=== PATIENT | male | born 1940 | race Caucasian/White ===

== ENCOUNTER 2016-12-08 14:23 | Inpatient (IN) ==
[2016-12-08] MEDS ORDERED: ALBUTEROL/IPRATROPIUM 3 ML NEB RESP TX STA (14:47)
[2016-12-08] MEDS ORDERED: LEVOFLOXACIN INJ 750 MG in PREMIX 1 EACH IV STA (14:52)
[2016-12-08] MEDS ORDERED: methylPREDNISolone SOD SUC 125 MG/2 ML VIAL IV STA (14:53)
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
--- NOTE | 2016-12-08 15:22 | XRay Report ---
Referring Physician: Fred Eng Exam: XR chest 1V portable Date: December 08, 2016 at 3:09 PM Reason: Shortness of breath Comparison: Chest single view December 08, 2016 at 1:46 PM Findings: The cardiac silhouette is normal in size. There are mild opacities at the right lung base. This could represent atelectasis, aspiration or pneumonia. There is also minimal atelectasis or scarring within the midlung zones, mainly on the left. No pneumothorax or pleural effusion is identified. No acute osseous process is seen. Impression: There are mild opacities at the right lung base. This could represent atelectasis, aspiration or pneumonia. Atelectasis is favored. PROCEDURE INTERPRETED AT [facility] DEPARTMENT OF RADIOLOGY Final Report Signed by: Dr. Henrique Martinez
[2016-12-08] MEDS ORDERED: TERBUTALINE 1 MG/1 ML VIAL SUBCUT ONE (15:25)
[2016-12-08] MEDS ORDERED: methylPREDNISolone SOD SUC 125 MG/2 ML VIAL ONE (15:25)
[2016-12-08] MEDS: TERBUTALINE 1 MG/1 ML VIAL SUBCUT SCH ×2 (15:27→16:08)
[2016-12-08 15:35] LABS: Troponin I Only < 0.015 NG/ML (0.00-0.045)
[2016-12-08] MEDS ORDERED: LEVOFLOXACIN INJ 150 ML IV ONE (16:02)
--- NOTE | 2016-12-08 16:11 | CT Report ---
EXAM: CT chest PE study DATE: December 08, 2016 COMPARISON: CT chest with contrast August 25, 2015 REASON: Shortness of breath, increased in diameter TECHNIQUE: Axial images of the chest were obtained after administration of 80 cc of Omnipaque 350 intravenous contrast. Coronal/sagittal reformatted images and coronal/sagittal MIP images were also acquired. The study was performed per pulmonary embolism protocol. Total DLP was 401.9 mGy*cm. FINDINGS: Pulmonary arteries: There is no evidence of pulmonary embolism through the segmental pulmonary arteries. Vascular/heart: The descending thoracic aorta is again mildly dilated, measuring 3.6 cm in diameter. This is stable. There is also known dilatation of the abdominal aorta which is not well visualized on this study. There is moderate scattered calcified plaque at the thoracic aorta and its branches, including the coronary arteries. The heart is normal in size, and no pericardial effusion is seen. Lymph nodes: No suspicious adenopathy is identified at the chest. Other mediastinum: Otherwise unremarkable. Chest wall: Unremarkable. Lungs: There is moderate emphysema, mainly in a centrilobular distribution. This is most prominent at the upper lung zones. There are mild stable opacities at both lung apices. This is favored represent scarring. Minimal additional scattered opacities are seen within both lungs and likely represent atelectasis and possibly additional scarring. There is also mild eventration of the posterior right hemidiaphragm. No pneumothorax or pleural effusion is identified. There is mild bronchial wall thickening bilaterally, which can be seen in bronchitis. Bones: There is mild degenerative change at the thoracic spine. No acute osseous process is identified. Upper abdomen: No acute process is seen within the visualized upper abdomen. IMPRESSION: 1. No evidence of pulmonary embolism. 2. Moderate emphysema. 3. There are minimal scattered opacities within both lungs. This is most consistent with atelectasis and likely scarring. 4. Stable mild dilatation of the descending thoracic aorta. PROCEDURE INTERPRETED AT [facility] DEPARTMENT OF RADIOLOGY Final Report Signed by: Dr. Henrique Martinez
[2016-12-08] MEDS ORDERED: ALBUTEROL 2.5 MG/3 ML NEB RESP TX PRN (17:13)
[2016-12-08] MEDS ORDERED: methylPREDNISolone SOD SUC 40 MG/1 ML VIAL IV SCH (17:30)
[2016-12-08] MEDS ORDERED: cefTRIAXone 1,000 MG in SODIUM CHLORIDE 0.9% 100 ML IV SCH (17:30)
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
[2016-12-08] MEDS ORDERED: DEXTROSE 50% 25 GM/50 ML VIAL IV PRN (18:15)
[2016-12-08] MEDS ORDERED: GLUCAGON 1 MG VIAL IM PRN (18:15)
[2016-12-08] MEDS ORDERED: ERGOCALCIFEROL 50,000 UNIT CAPSULE PO SCH (18:15)
[2016-12-08] MEDS: ALBUTEROL/IPRATROPIUM 3 ML NEB RESP TX SCH (19:21)
[2016-12-08] MEDS ORDERED: BUDESONIDE/FORMOTEROL 160-4.5 INHALER 6 GM INH SCH (21:00)
[2016-12-08] MEDS: FLUTICASONE/SALMETEROL 250-50 DISKUS 14 DOSE INH SCH (21:39)
[2016-12-08] MEDS: INSULIN LISPRO 100 UNIT/ML SUBCUT SCH (21:39)
[2016-12-08] MEDS: buPROPion 100 MG TABLET PO SCH (21:40)
[2016-12-08] MEDS: DOCUSATE/SENNA 50-8.6 MG TABLET PO SCH (21:40)
[2016-12-08] MEDS: cephALEXin 500 MG CAPSULE PO SCH (21:40)
[2016-12-08] MEDS: SODIUM CHLORIDE 0.9% 1,000 ML IV SCH (21:40)
[2016-12-08] MEDS: AMITRIPTYLINE 25 MG TABLET PO SCH (21:41)
[2016-12-09] MEDS: ALBUTEROL/IPRATROPIUM 3 ML NEB RESP TX SCH ×4 (00:23→19:27)
[2016-12-09] MEDS ORDERED: LEVOFLOXACIN INJ 250 MG in PREMIX 1 EACH IV SCH (07:00)
--- NOTE | 2016-12-09 07:22 | EKG Report ---
Stationary ECG Study [facility] ER Test Date: 12/08/2016 2:40:36 PM Pat Name: ROBB BRIDGES Department: Room: 338 Gender: M [employer]: : 1940 Requested by: Fred Coker Order Number: [id number] Reading MD: SIGRID JACKSON Intervals [employer] Rate: 99 P: 82 TX: 153 QRS: 35 QRSD: 137 T: 92 QT: 360 QTc: 416 Interpretive Statements SINUS RHYTHM RIGHT BUNDLE BRANCH BLOCK Electronically Signed On 12-09-16 18:56:11 CDT by SIGRID JACKSON [email or web address]
[2016-12-09] MEDS ORDERED: metFORMIN 500 MG TABLET PO SCH (08:00)
[2016-12-09 08:06] LABS: Basophils % 0.1 % (0.0-0.8); Eosinophils % 0.1 % (0.00-10.9); Hematocrit 39.2 VOL% (42.0-52.0); Hemoglobin 13.1 GM/DL (14.0-18.0); Immature Granulocytes Absolute 0.28 #; Lymphocytes % 7.2 % (21.2-54.2); Mean Corpuscular HGB Conc 33.4 GM/DL (32-36); Mean Corpuscular Hemoglobin 29 PG (27-34); Mean Corpuscular Volume 86.3 FL (87-102); Mean Platelet Volume 11.2 FL (9.6-12.0); Monocytes # 0.5 10*3/uL (0.11-0.8); Monocytes % 3.3 % (1.7-12.7); Neutrophils # 12.4 10*3/uL (1.4-7.4); Neutrophils % 87.3 % (38.7-73.9); Platelet Count 266 T/CUMM (130-400); Red Blood Count 4.54 MC/CUMM (3.8-5.5); Red Cell Distribution Width 13.7 % (9.3-17.3); White Blood Count 14.1 T/CUMM (4-12)
--- NOTE | 2016-12-09 08:43 | XRay Report ---
Chest, 2 views History short of breath Comparison 12/08/2016 The heart is normal in size. Hilar contours are similar on multiple prior studies Fat-pad at the right cardiophrenic angle seen on prior studies. The lungs are diffusely hyperexpanded chronically. The lung markings are grossly unchanged without acute infiltrates seen. Soft tissue shadows overlie both bases Impression: Chronic pulmonary hyperexpansion without acute infiltrate PROCEDURE INTERPRETED AT [facility] DEPARTMENT OF RADIOLOGY Final Report Signed by: Dr. Jacqueline Samaniego
[2016-12-09 08:47] LABS: Albumin 3.4 G/DL (3.4-5.0); Bilirubin,Total 1.4 MG/DL (0.2-1.0); Calcium 8.9 MG/DL (8.5-10.1); Osmolality,Calculated 289.4 MOS/KG (273-304); Potassium 4.4 MMOL/L (3.5-5.1); Total Protein 6.4 G/DL (6.4-8.3)
[2016-12-09] MEDS ORDERED: MOVANTIK 25 MG PO SCH (09:00)
--- NOTE | 2016-12-09 09:41 | Hospitalist Progress Note ---
Assessment and Plan - Time spent with patient Time spent with patient: Less than 30 minutes (1) Generalized weakness Status: Acute Assessment and plan: Patient has generalized weakness. We will hydrate and reassess in the a.m. 12/09/16: Weakness is improved. We will discontinue his IV fluids as he is tolerating his diet well. May need to get physical therapy involved and consider placement. Current Visit: Yes (2) COPD (chronic obstructive pulmonary disease) Status: Acute Assessment and plan: Patient has COPD there is no audible wheezing at this time his O2 saturations are 98% on room air. CT reveals no evidence of pulmonary emboli there is no evidence of pneumonia there does appear to be some chronic scarring and atelectasis. I will withhold his recently prescribed an inhaler since he believes this has made his symptomatology worse and provide O2 supplementation as well as duo nebs throughout the night. Will reassess in the a.m. He will probably benefit from referral to a library manager on outpatient basis as well as pulmonary rehab. 12/09/16: Patient appears to be fairly well compensated however continues to symptomatically complain. I will go ahead and ask pulmonary to see while here and get any further recommendations and arrange for outpatient pulmonary rehabilitation. May also need to discuss possible placement of some support i.e. assisted living. I do not think I have much more to offer him at this time. Current Visit: Yes (3) Atypical chest pain Status: Acute Assessment and plan: Patient has atypical chest pain with no EKG changes and initial set of cardiac isoenzymes which been negative. Will follow serial enzymes. 12/09/16:. Serial cardiac isoenzymes have been negative. He has no further complaints of chest pain. Current Visit: Yes (4) Chronic pain syndrome Status: Chronic Assessment and plan: Chronic pain syndrome followed by the pain management center. We will continue his current medical regimen. Current Visit: Yes (5) Constipation Status: Chronic Assessment and plan: Secondary to his chronic pain/opiates and will continue his current dose of naloxogel. Current Visit: Yes Hospitalist: Subjective Interval history: Mr. Marquis is sitting on the side of the bed and states that he continues to have shortness of breath but is extremely talkative and does not have to take any breaks. He states he has cough with minimal production of extremely thick secretions. He is tolerating his diet and having no complaints. He states it is very difficult at home because when he gets very short of breath it is difficult to deal with. Exam - Constitutional Vitals: Period Temp Pulse Resp BP Sys/Barker Pulse Ox Last 24 Hr 97.6 F-98 F 106-128 18-22 138-180/64-95 93-99 General appearance: no acute distress - Head Head exam: Present: normocephalic, atraumatic - Eye Eye exam: Present: EOMI Pupils: Present: ARAM - ENT ENT exam: Present: normal exam, normal oropharynx - Neck Neck exam: Present: normal inspection - Respiratory Respiratory exam: Present: clear to auscultation bilaterally. Absent: rales, rhonchi, wheezes - Cardiovascular Cardiovascular exam: Present: regular rate and rhythm, tachycardia - GI/Abdominal GI/Abdominal exam: Present: normal bowel sounds, soft. Absent: distended, tenderness - Extremities Exam Extremities exam: Absent: calf tenderness, edema - Back Exam Back exam: Present: normal inspection - Neurological Exam Neurological exam: Present: alert, oriented X3, CN II-XII intact. Absent: motor sensory deficit - Psychiatric Psychiatric exam: Present: normal affect, normal mood, anxious. Absent: agitated - Skin Skin exam: Present: warm, dry. Absent: erythema, rash Results - Labs CBC & BMP: 12/09/16 07:45 12/09/16 07:45 Lab Results: I have reviewed the past 24 hour labs Quality Measures - VTE Deep Vein Thrombosis/Pulmonary Embolism Present on Admission: No
[2016-12-09] MEDS: hydroCHLOROthiazide 12.5 MG CAPSULE PO SCH (09:48)
[2016-12-09] MEDS: MELOXICAM 7.5 MG TABLET PO SCH (09:48)
[2016-12-09] MEDS: DILTIAZEM CD 240 MG CAPSULE PO SCH (09:48)
[2016-12-09] MEDS: sitaGLIPtin 25 MG TABLET PO SCH ×2 (09:49→17:29)
[2016-12-09] MEDS: buPROPion 100 MG TABLET PO SCH ×2 (09:49→21:25)
[2016-12-09] MEDS: THEOPHYLLINE ER (24 HR) 300 MG CAPSULE PO SCH (09:49)
[2016-12-09] MEDS: cephALEXin 500 MG CAPSULE PO SCH ×3 (09:49→21:25)
[2016-12-09] MEDS: metFORMIN 500 MG TABLET PO SCH ×2 (09:50→17:29)
[2016-12-09] MEDS: FLUTICASONE/SALMETEROL 250-50 DISKUS 14 DOSE INH SCH ×2 (09:51→21:26)
[2016-12-09] MEDS: SODIUM CHLORIDE 0.9% 1,000 ML IV SCH (10:36)
[2016-12-09] MEDS: INSULIN LISPRO 100 UNIT/ML SUBCUT SCH ×4 (11:11→21:26)
[2016-12-09] MEDS ORDERED: AMINOPHYLLINE IV ONE (11:30)
[2016-12-09] MEDS ORDERED: DEXTROSE 5% IV ONE (11:30)
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
[2016-12-09] MEDS: methylPREDNISolone SOD SUC 40 MG/1 ML VIAL IV SCH ×2 (11:59→23:32)
[2016-12-09] MEDS: MONTELUKAST 10 MG TABLET PO SCH ×2 (11:59→21:25)
[2016-12-09] MEDS: DORNASE ALFA 2.5 MG/2.5 ML VIAL RESP TX SCH ×2 (13:49→19:34)
[2016-12-09] MEDS: DOCUSATE/SENNA 50-8.6 MG TABLET PO SCH (21:25)
[2016-12-09] MEDS: AMITRIPTYLINE 25 MG TABLET PO SCH (21:25)
[2016-12-10] MEDS: ALBUTEROL/IPRATROPIUM 3 ML NEB RESP TX SCH ×4 (02:01→19:40)
[2016-12-10] MEDS: DORNASE ALFA 2.5 MG/2.5 ML VIAL RESP TX SCH ×2 (07:22→19:40)
[2016-12-10] MEDS: MELOXICAM 7.5 MG TABLET PO SCH (08:01)
[2016-12-10] MEDS: hydroCHLOROthiazide 12.5 MG CAPSULE PO SCH (08:02)
[2016-12-10] MEDS: THEOPHYLLINE ER (24 HR) 300 MG CAPSULE PO SCH (08:02)
[2016-12-10] MEDS: sitaGLIPtin 25 MG TABLET PO SCH ×2 (08:02→17:24)
[2016-12-10] MEDS: metFORMIN 500 MG TABLET PO SCH ×2 (08:02→17:23)
[2016-12-10] MEDS: cephALEXin 500 MG CAPSULE PO SCH ×3 (08:02→21:52)
[2016-12-10] MEDS: MONTELUKAST 10 MG TABLET PO SCH ×2 (08:03→21:52)
--- NOTE | 2016-12-10 08:38 | Hospitalist Progress Note ---
Assessment and Plan (1) Generalized weakness Status: Acute Assessment and plan: Patient has generalized weakness. We will hydrate and reassess in the a.m. 12/09/16: Weakness is improved. We will discontinue his IV fluids as he is tolerating his diet well. May need to get physical therapy involved and consider placement. 12-09-16: Continued improvement in generalized weakness. Continue current care. Current Visit: Yes (2) COPD (chronic obstructive pulmonary disease) Status: Acute Assessment and plan: Patient has COPD there is no audible wheezing at this time his O2 saturations are 98% on room air. CT reveals no evidence of pulmonary emboli there is no evidence of pneumonia there does appear to be some chronic scarring and atelectasis. I will withhold his recently prescribed an inhaler since he believes this has made his symptomatology worse and provide O2 supplementation as well as duo nebs throughout the night. Will reassess in the a.m. He will probably benefit from referral to a ldr nurse on outpatient basis as well as pulmonary rehab. 12/09/16: Patient appears to be fairly well compensated however continues to symptomatically complain. I will go ahead and ask pulmonary to see while here and get any further recommendations and arrange for outpatient pulmonary rehabilitation. May also need to discuss possible placement of some support i.e. assisted living. I do not think I have much more to offer him at this time. 12/10/16: Appreciate Dr. Chou's assistance. Continue current medical regimen. Current Visit: Yes (3) Atypical chest pain Status: Acute Assessment and plan: Patient has atypical chest pain with no EKG changes and initial set of cardiac isoenzymes which been negative. Will follow serial enzymes. 12/09/16:. Serial cardiac isoenzymes have been negative. He has no further complaints of chest pain. Current Visit: Yes (4) Chronic pain syndrome Status: Chronic Assessment and plan: Chronic pain syndrome followed by the pain management center. We will continue his current medical regimen. Current Visit: Yes (5) Constipation Status: Chronic Assessment and plan: Secondary to his chronic pain/opiates and will continue his current dose of naloxogel. Will add MiraLAX to his current regimen. Current Visit: Yes Hospitalist: Subjective Interval history: Patient states his appetite is much improved. He continues to have some shortness of breath but this is better as well. He is concerned about being constipated as he takes chronic opiates for his neck pain. Exam - Constitutional Vitals: Period Temp Pulse Resp BP Sys/Barker Pulse Ox Last 24 Hr 97.9 F-98.4 F 90-122 17-22 119-162/73-94 94-99 General appearance: no acute distress - Head Head exam: Present: normocephalic, atraumatic - Eye Eye exam: Present: EOMI Pupils: Present: ARAM - ENT ENT exam: Present: normal exam - Neck Neck exam: Present: normal inspection - Respiratory Respiratory exam: Present: clear to auscultation bilaterally. Absent: rales, rhonchi, wheezes - Cardiovascular Cardiovascular exam: Present: regular rate and rhythm - GI/Abdominal GI/Abdominal exam: Present: normal bowel sounds, soft. Absent: distended, tenderness, rebound - Extremities Exam Extremities exam: Absent: calf tenderness, edema - Back Exam Back exam: Present: normal inspection - Neurological Exam Neurological exam: Present: alert, oriented X3, CN II-XII intact. Absent: motor sensory deficit - Psychiatric Psychiatric exam: Present: normal affect, normal mood. Absent: agitated, anxious - Skin Skin exam: Present: warm, dry. Absent: rash Results - Labs CBC & BMP: 12/09/16 07:45 12/09/16 07:45 Lab Results: I have reviewed the past 24 hour labs Quality Measures - VTE Deep Vein Thrombosis/Pulmonary Embolism Present on Admission: No
[2016-12-10] MEDS: FLUTICASONE/SALMETEROL 250-50 DISKUS 14 DOSE INH SCH ×2 (09:45→21:52)
[2016-12-10] MEDS: DILTIAZEM CD 240 MG CAPSULE PO SCH (09:45)
[2016-12-10] MEDS: INSULIN LISPRO 100 UNIT/ML SUBCUT SCH ×4 (09:46→21:51)
[2016-12-10] MEDS: buPROPion 100 MG TABLET PO SCH ×2 (09:46→21:52)
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
[2016-12-10] MEDS: POLYETHYLENE GLYCOL POWDER 17 GM PACK PO SCH ×2 (12:38→21:52)
[2016-12-10] MEDS: methylPREDNISolone SOD SUC 40 MG/1 ML VIAL IV SCH (12:45)
[2016-12-10] MEDS: AMITRIPTYLINE 25 MG TABLET PO SCH (21:52)
[2016-12-10] MEDS: DOCUSATE/SENNA 50-8.6 MG TABLET PO SCH (21:52)
[2016-12-11] MEDS: methylPREDNISolone SOD SUC 40 MG/1 ML VIAL IV SCH ×2 (00:04→13:16)
[2016-12-11] MEDS: ALBUTEROL/IPRATROPIUM 3 ML NEB RESP TX SCH ×3 (02:18→13:09)
[2016-12-11] MEDS: DORNASE ALFA 2.5 MG/2.5 ML VIAL RESP TX SCH (07:43)
[2016-12-11] MEDS: INSULIN LISPRO 100 UNIT/ML SUBCUT SCH ×2 (09:29→13:16)
[2016-12-11] MEDS: MELOXICAM 7.5 MG TABLET PO SCH (09:30)
[2016-12-11] MEDS: POLYETHYLENE GLYCOL POWDER 17 GM PACK PO SCH (09:30)
[2016-12-11] MEDS: cephALEXin 500 MG CAPSULE PO SCH ×2 (09:30→16:19)
[2016-12-11] MEDS: sitaGLIPtin 25 MG TABLET PO SCH (09:30)
[2016-12-11] MEDS: DILTIAZEM CD 240 MG CAPSULE PO SCH (09:30)
[2016-12-11] MEDS: metFORMIN 500 MG TABLET PO SCH (09:30)
[2016-12-11] MEDS: FLUTICASONE/SALMETEROL 250-50 DISKUS 14 DOSE INH SCH (09:30)
[2016-12-11] MEDS: hydroCHLOROthiazide 12.5 MG CAPSULE PO SCH (09:30)
[2016-12-11] MEDS: THEOPHYLLINE ER (24 HR) 300 MG CAPSULE PO SCH (09:31)
[2016-12-11] MEDS: buPROPion 100 MG TABLET PO SCH (09:31)
[2016-12-11] MEDS: MONTELUKAST 10 MG TABLET PO SCH (09:31)
[2016-12-11] MEDS ORDERED: MAGNESIUM CITRATE 300 ML BOTTLE PO ONE (10:29)
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
--- NOTE | 2016-12-11 13:19 | EKG Report ---
Stationary ECG Study [facility] Test Date: 12/11/2016 10:44:09 AM Pat Name: ROBB BRIDGES Department: Room: 338 Gender: M [place] Hand: RENATO : 1940 Requested by: Nivia Murillo Order Number: [id number] Dora MD: TYLER MÉNDEZ Intervals Leonard Rate: 109 P: 88 NC: 140 QRS: 57 QRSD: 136 T: 92 QT: 302 QTc: 366 Interpretive Statements SINUS TACHYCARDIA RIGHT BUNDLE BRANCH BLOCK Electronically Signed On 12-12-16 12:15:32 CDT by TYLER MÉNDEZ [email or web address]
--- NOTE | 2016-12-11 13:41 | Discharge Summary ---
Hospital Course - Hospital Course Hospital Course: Mr. Marquis is a 76 year old white male who is followed by Dr. Ulloa states that he has had increasing generalized weakness and has dyspnea with exertion. Chest x-ray shows COPD with no evidence of infiltrate. Chest CT on admission shows no evidence of pulmonary embolism but moderate emphysema. There is some mild opacities initially shown which are most likely more consistent with atelectasis or scarring. Patient received duonebs every 4 hours and pulmonary was consulted. Pulmozyme was also added to his nebulizer regimen. Patient is already on theophylline at home and IV Solu-Medrol started. He was on Ceftin at home and this was also continued. His blood sugars were hard to control due to steroids. Patient is insisted on going home today and is weaned completely off the oxygen. He has been very difficult towards the nurses. He reported some substernal chest discomfort that he has had for a while to me today. He EKG shows incomplete right bundle branch block and a negative troponin. I will treat him for GERD. Patient will be weaned off of steroids with prednisone taper. I will also give him 5 days of Levaquin p.o. The medicine reconciliation is not accurate in the computer as it has crashed twice when I tried to do it. His home medicines will have to be manually listed and called into the pharmacy. I have increased his metformin and have stopped his HCTZ due to Dehydration. F/u with Artemio in 1-2 weeks. Specialty Discharge - Follow Up or Referrals Discharge Plan - Discharge Data Disposition: Disch To Home/Self Care Condition at Discharge: Stable Discharge Diet: diabetic diet Activity: resume usual activities as tolerated Hygiene: no restrictions Weight Bearing at Discharge: full weight bearing - Discharge Medications No Action RX: Theophylline ER Cap (24 Hr) [Doug-24] 300 mg PO DAILY RX: Diltiazem Cd Cap [Cardizem CD] 240 mg PO DAILY RX: Albuterol/Ipratropium Neb [Duoneb] 3 ml RESP TX RT Q4H RX: Fluticasone/Salmeterol 250-50 [Advair 250-50] 1 puff INH BID RX: Sitagliptin Phos/Metformin HCl [Janumet 50-500 mg Tablet] 50 - 500 mg PO BID W/MEALS Amitriptyline [Elavil] 25 mg PO BEDTIME buPROPion [Wellbutrin] 100 mg PO BID RX: cephALEXin [Cephalexin] 500 mg PO TID Hcslxca-Nuubmlym-Fnbhfjwvajwpz (1mg-30mg-12.5mg/5ml) 5 ml PO Q6H PRN PRN Reason: Allergy Symptoms hydroCHLOROthiazide [Hydrochlorothiazide] 12.5 mg PO DAILY HYDROcodone/ACETAMIN 10-325 [[place] 10-325] 1 tablet PO Q8H PRN PRN Reason: Pain RX: Levocetirizine Dihydrochloride 5 mg PO DAILY PRN PRN Reason: ALLERGIES/ITCHING Meloxicam [Meloxicam] 15 mg PO DAILY Sennosides/Docusate Sodium [Docusate Sodium-Senna Tablet] 1 each PO BEDTIME Umeclidinium [place] [Incruse Ellipta] 1 puff INH DAILY Ergocalciferol (Vitamin D2) [Vitamin D2] 50,000 unit PO Q7D Naloxegol Oxalate [Movantik] 25 mg PO DAILY - Follow Up or Referral - Forms/Instructions Instructions: Cigarette Smoking and Your Health (GEN), Chronic Obstructive Pulmonary Disease (GEN), How to Stop Smoking, Director Of Restaurant Operations (GEN), COPD, Director Of Restaurant Operations (GEN) Exam - Constitutional Vitals: Period Temp Pulse Resp BP Sys/Barker Pulse Ox Last 24 Hr 97.8 F-98.8 F 76-123 14-20 125-148/56-81 93-99 General appearance: normal weight, no acute distress - Head Head exam: Present: normal inspection, normocephalic - Respiratory Respiratory exam: Present: clear to auscultation bilaterally. Absent: rhonchi, wheezes - Cardiovascular Cardiovascular exam: Present: regular rate and rhythm. Absent: systolic murmur - GI/Abdominal GI/Abdominal exam: Present: normal bowel sounds, soft. Absent: tenderness - Extremities Exam Extremities exam: Present: normal inspection, normal capillary refill - Neurological Exam Neurological exam: Present: alert, oriented X3 - Psychiatric Psychiatric exam: Present: normal affect, normal mood Discharge Results Labs on day of discharge: Labs from last 24 hours 12/11/16 12/11/16 12/11/16 11:32 11:06 10:36 POC Glucose 327 H Troponin I < 0.015 Theophylline 5.1 L 12/11/16 12/10/16 12/10/16 07:05 21:26 15:37 POC Glucose 297 H 378 H 195 H Troponin I Theophylline DS: Provider Date of admission: 12/08/16 17:12 Primary care physician: Umair Ulloa Attending physician on admission: Celestino Ram Consults: 12/08/16 18:15 Consult to Pulmonary Rehabilitation [CONS] Routine Reason for Pulmonary Rehabilitation: COPD 12/08/16 21:25 Consult to Pharmacy [CONS] Routine Reason for Pharmacy Consult: Adjust Meds Renal Funct 12/09/16 09:43 Consult to Case Mgmt/Social Srvs [CONS] Routine Reason for Case Mgmt/Social Srvs: Discharge Planning Consult to Physician [CONS] Routine Comment: COPD, any suggestions? Consulting Provider: Augie Chou Discharging clinician: Nivia Shaw MD
[2016-12-11 15:27] VITALS: BP 141/68
--- NOTE | 2016-12-14 15:04 | Physician Query Form ---
CLICK EDIT DOCUMENT TO SELECT QUERY ANSWER --> OK --> SIGN Kimberly Norman RN Clinical Procurement Coordinator W) [phone] (f) [phone] [email or web address] PROVIDERS: Make your selection(s) from the choices in EACH section by typing an "x" and enter comments in the comment section. Please use your independent medical judgment in providing your response. This request does not imply that any particular answer is desired or expected. CLINICAL INDICATORS: (Providers should not edit this section) Pt. admitted with COPD exacerbation. Based on documentation of "There is some mild opacities initially shown which are most likely more consistent with atelectasis or scarring". Pt. treated with IV Solu-medrol and Duoneb respiratory treatments. Please clarify the diagnosis of atelectasis. Please clarify the following: (x ) The above diagnosis was monitored, evaluated, and/or treated and is a confirmed diagnosis ( ) The above diagnosis was ruled out ( ) Other, please specify: ( ) Clinically unable to determine COMMENTS: Use of terms such as suspected, likely, or probable (associated with a specific diagnosis that is being evaluated, monitored, or treated as if it exists) are acceptable and can be restated in the discharge summary if not ruled out. MTDD
== END 2016-12-11 15:03 | disposition home health service (06) | DRG 191 ==
LOC: EDBD → EDUNIT# → N.ED 14:23 → N.EDINP 17:12 → SUATTDRO 17:12 → N.3E 17:33
PROVIDERS: ADMIT Hospitalist; ATTEND Internal Medicine